=== PATIENT | female | born 1955 | race Caucasian/White ===

== ENCOUNTER 2022-12-09 17:41 | Emergency (ER) | payer MEDICARE, BC ==
[2022-12-09] MEDS ORDERED: Sodium Chloride 0.9% 10 ML Syringe FLUSH PRN (18:00)
[2022-12-09 18:36] LABS: ANION GAP 13.5 mEq/L (7-13); CHLORIDE,CL 87 mmol/L (98-107); SODIUM,NA 121 mmol/L (136-145)
[2022-12-09 18:40] LABS: ESTIMATED GFR 49 mL/min (>=60)
[2022-12-09] MEDS ORDERED: Sodium Polystyrene Sulfonate 15 GM/60 ML Susp 60 ML Bot PO ONE (19:43)
== END 2022-12-09 20:05 | disposition home or self-care (01) ==
LOC: DL.ED 17:41
DX: E87.5 Hyperkalemia (principal); I10 Essential (primary) hypertension; J45.909 Unspecified asthma, uncomplicated; E05.90 Thyrotoxicosis, unspecified without thyrotoxic crisis or storm; Z88.1 Allergy status to other antibiotic agents; Z88.2 Allergy status to sulfonamides; Z79.899 Other long term (current) drug therapy
CPT/HCPCS: 36415; 80053; 81003; 83605; 83735; 85025; 86140; 93005; 93010; 99284; 99285; A9270; J3490